=== PATIENT | female | born 1990 | race Hispanic/Latino ===

== ENCOUNTER 2017-01-31 15:28 | Emergency (ER) | payer SELFPAY ==
[~2017-01-31] VITALS: Ht 152.4 cm; Wt 61.6 kg
[~2017-01-31 15:28] MED LIST: ENDOCET 5-3251 EACH PO; FERROUS SULFAT325 MG PO; IBUPROFEN800 MG PO
[2017-01-31 16:27] LABS: HEMATOCRIT 39.7 % (36.0-46.0); MCH 28.2 PG (29.0-34.0); MCHC 33.8 G/DL (30.0-36.0); MCV 83.4 FL (83-99); MEAN PLAT.VOLUME 10.4 uM^3 (9.5-12.4); NRBC (%) 0.2 /100 WBC (0-0); PLATELET COUNT 339 K/uL (156-360); RBC DIS.WIDTH-CV 13.1 % (11.8-14.6); RBC DIS.WIDTH-SD 39.8 % (39-53); RED BLOOD COUNT 4.76 M/uL (3.80-5.20); WHITE BLOOD COUNT 11.4 K/uL (4.1-10.2)
[2017-01-31 16:35] LABS: CHLORIDE 102 mEq/L (99-109); POTASSIUM 3.6 mEq/L (3.7-5.4); SODIUM 140 mEq/L (136-147)
[2017-01-31 16:38] LABS: GLUCOSE 107 mg/dL (70-99)
[2017-01-31 16:39] LABS: ANION GAP 12 MEQ/L (2-14); TOTAL BILIRUBIN 0.6 mg/dL (0.0-1.0)
[2017-01-31 16:41] LABS: ALKALINE PHOSPHATASE 59 IU/L (3-129); GFR ESTIMATE (CALCULATED) > 59 mL/min/
[2017-01-31 16:42] LABS: UREA NITROGEN (BUN) 7 mg/dL (9-23)
[2017-01-31 16:45] LABS: LIPASE 16 U/L (1.0-51.0)
[2017-01-31 16:50] LABS: QUANTITATIVE HCG < 4.0 MIU/ML
[2017-01-31 17:06] LABS: ADD MIUA? YES; BILIRUBIN NEGATIVE; BLOOD NEGATIVE; COLOR YELLOW ((YELLOW)); GLUCOSE (STRIP) NEGATIVE; KETONES NEGATIVE; LEUKOCYTES NEGATIVE; NITRITE NEGATIVE; PROTEIN (STRIP) 30; SPECIFIC GRAVITY 1.014 (1.000-1.030); UROBILINOGEN 0.2 MG/DL (0.2-1.0)
[2017-01-31 17:12] LABS: BACTERIA NONE SEEN /HPF; EPITHELIAL CELLS 1+ /HPF; MUCUS TRACE /LPF; RED BLOOD CELLS 0-5 /HPF (0-5); WHITE BLOOD CELLS 0-5 /HPF (0-5)
[2017-01-31] MEDS ORDERED: ZOFRAN ODT4 MG PO (18:54)
[2017-01-31] MEDS ORDERED: TRAMADOL HCL50 MG PO (18:54)
[2017-01-31] MEDS ORDERED: FLAGYL500 MG PO (18:56)
[2017-01-31] MEDS ORDERED: CIPRO500 MG PO (18:56)
[2017-01-31 19:21] VITALS: BP 126/83
== END 2017-01-31 19:23 | disposition home or self-care (01) ==
LOC: EME 15:28
PROVIDERS: Physician Assistant Medical
DX: R10.13 Epigastric pain (principal); R11.2 Nausea with vomiting, unspecified; R19.7 Diarrhea, unspecified
CPT/HCPCS: 74022; 74177; 80053; 81003; 83690; 84702; 85027; 99281; 99285; J2270; J2405; J7030

== ENCOUNTER 2017-07-14 09:16 | Emergency (ER) | payer OTHER ==
[~2017-07-14] VITALS: Ht 152.4 cm; Wt 60.2 kg
[~2017-07-14 09:16] MED LIST changes: +CIPRO500 MG PO; +FLAGYL500 MG PO; +TRAMADOL HCL50 MG PO; +ZOFRAN ODT4 MG PO
[2017-07-14 10:28] LABS: HEMATOCRIT 35.1 % (36.0-46.0); HEMOGLOBIN 12.5 G/DL (11.9-15.5); MCH 29.1 PG (29.0-34.0); MCHC 35.6 G/DL (30.0-36.0); MCV 81.8 FL (83-99); PLATELET COUNT 287 K/uL (156-360); RBC DIS.WIDTH-CV 13.2 % (11.8-14.6); RBC DIS.WIDTH-SD 38.7 % (39-53); RED BLOOD COUNT 4.29 M/uL (3.80-5.20); WHITE BLOOD COUNT 10.8 K/uL (4.1-10.2)
[2017-07-14 10:39] LABS: ALBUMIN 3.8 g/dL (3.2-4.8)
[2017-07-14 10:40] LABS: CHLORIDE 105 mEq/L (99-109); POTASSIUM 3.2 mEq/L (3.7-5.4); SODIUM 136 mEq/L (136-147)
[2017-07-14 10:42] LABS: GLUCOSE 100 mg/dL (70-99); TOTAL PROTEIN 7.4 g/dL (6.4-8.3)
[2017-07-14 10:44] LABS: TOTAL BILIRUBIN 0.4 mg/dL (0.0-1.0)
[2017-07-14 10:45] LABS: ALKALINE PHOSPHATASE 55 IU/L (3-129)
[2017-07-14 10:46] LABS: CREATININE 0.5 mg/dL (0.6-1.3); GFR ESTIMATE (CALCULATED) > 59 mL/min/
[2017-07-14 10:47] LABS: AST (GOT) 13 IU/L (2-34); UREA NITROGEN (BUN) 5 mg/dL (9-23)
[2017-07-14 10:48] LABS: ALT (GPT) 10 IU/L (3-49)
[2017-07-14 11:18] LABS: QUANTITATIVE HCG 80069.1 MIU/ML
[2017-07-14 12:55] LABS: APPEARANCE CLEAR ((CLEAR)); BILIRUBIN NEGATIVE; BLOOD NEGATIVE; COLOR YELLOW ((YELLOW)); GLUCOSE (STRIP) NEGATIVE; KETONES NEGATIVE; LEUKOCYTES NEGATIVE; NITRITE NEGATIVE; PROTEIN (STRIP) NEGATIVE; SPECIFIC GRAVITY 1.009 (1.000-1.030); UCUL ADDED? NO; UROBILINOGEN 0.2 MG/DL (0.2-1.0)
[2017-07-14] MEDS ORDERED: ZOFRAN ODT4 MG PO (13:32)
[2017-07-14 14:12] VITALS: BP 113/65
== END 2017-07-14 14:14 | disposition home or self-care (01) ==
LOC: EME 09:16
DX: O21.0 Mild hyperemesis gravidarum (principal); O99.281 Endocrine, nutritional and metabolic diseases complicating pregnancy, first trimester; E87.6 Hypokalemia; Z3A.08 8 weeks gestation of pregnancy
CPT/HCPCS: 80053; 81003; 84702; 85027; J2405; J7030